=== PATIENT | female | born 1965 | race Caucasian/White ===

== ENCOUNTER 2019-03-03 07:48 | Day surgery (SDC) | payer OTHER ==
[~2019-03-03] VITALS: Ht 170.2 cm; Wt 94.5 kg
[~2019-03-03 07:48] MED LIST: LR 1,000 ML IV ONE; MULTCHW12 PO
[2019-03-03] MEDS ORDERED: dexameTHASONE 4 MG/ML 1ML VIAL (J1100) As Ordered ONE (08:04)
[2019-03-03] MEDS ORDERED: KETOROLAC 60 MG/2 ML VIAL (J1885) As Ordered ONE (08:04)
[2019-03-03] MEDS ORDERED: ONDANSETRON 4MG/2ML VIAL (J2405) As Ordered ONE (08:04)
[2019-03-03] MEDS ORDERED: fentaNYL 100 MCG/2 ML INJECTION (J3010) As Ordered ONE (08:04)
[2019-03-03] MEDS ORDERED: PROPOFOL 200 MG/20 ML VIAL As Ordered ONE (08:04)
[2019-03-03] MEDS ORDERED: LIDOCAINE 2% INJ 100 MG/5 ML SDV (FOR ANES.) As Ordered ONE (08:04)
[2019-03-03] MEDS ORDERED: MIDAZOLAM INJ 2 MG/2 ML VIAL (J2250) As Ordered ONE (08:05)
[2019-03-03 08:28] LABS: HEMATOCRIT 44.9 % (36.0-47.0); HEMOGLOBIN 13.9 g/dl (12.0-15.5); MEAN CORPUSCULAR VOLUME 87.2 fl (80.0-96.0); PLATELET COUNT, AUTOMATED 192 10^3/uL (150-450); RED BLOOD COUNT 5.15 10^6/uL (4.00-5.40); WHITE BLOOD COUNT 6.1 10^3/uL (4.0-10.0)
[2019-03-03 08:38] LABS: HCG, SERUM QUALITATIVE NEGATIVE (NEGATIVE)
[2019-03-03] MEDS ORDERED: MEPERIDINE INJ 25 MG/ML VIAL (J2175) IV PRN (11:00)
[2019-03-03] MEDS ORDERED: METOCLOPRAMIDE INJ 10MG/2ML VIAL (J2765) IV PRN (11:00)
[2019-03-03] MEDS ORDERED: ONDANSETRON 4MG/2ML VIAL (J2405) IV PRN (11:00)
[2019-03-03] MEDS ORDERED: oxyCODONE 5MG TAB PO PRN (11:00)
[2019-03-03] MEDS ORDERED: LR 1,000 ML IV SCH (11:00)
[2019-03-03] MEDS: fentaNYL 100 MCG/2 ML INJECTION (J3010) IV PRN ×2 (11:17→11:23)
[2019-03-03] MEDS ORDERED: PERCOCET 5MG/325MG TAB PO PRN (12:00)
[2019-03-03 12:40] VITALS: BP 140/76
[2019-03-03] MEDS ORDERED: KETOROLAC 30 MG/ML VIAL (J1885) IV PRN (17:00)
--- NOTE | 2019-03-07 11:28 | RO ---
DATE OF PROCEDURE: 03/03/2019 PREPROCEDURE DIAGNOSIS: Abnormal uterine bleeding. POSTPROCEDURE DIAGNOSIS: Abnormal uterine bleeding, endometrial cavity mass. PROCEDURE: Diagnostic hysteroscopy. Dilation and curettage. SURGEON: Dr. Vaibhav Newsome. SUPERVISOR QUILTING: None. ANESTHESIA: General. FLUIDS: 600 mL of lactated Ringers. URINE OUTPUT: 60 mL via straight catheter. Estimated blood loss: 10 mL. ANTIBIOTICS: None indicated. COMPLICATIONS: None. DESCRIPTION OF PROCEDURE: The risks, benefits, indications and alternatives of the procedure were reviewed with the patient and informed consent was obtained. The patient was taken to the operating room where general anesthesia was obtained without difficulty. The patient was then placed in the lithotomy position using Marvin stirrups. The patient was then prepped and draped in the usual sterile fashion and the bladder was drained using and in-and-out catheter. A sterile speculum was placed in the patient's vagina. The cervix was visualized. A single toothed tenaculum was used to grasp the anterior lip of the cervix. A uterine sound was then gently placed into the uterus which sounded to approximately 9 cm in length. The cervix was then gently, serially dilated to a size 12 [place] with a Mateo dilator. The hysteroscope was first primed. The hysteroscope was then advanced through the endocervical canal under direct visualization. After distention of the uterus with warm saline, a systematic examination of the uterine cavity was performed. There was a large intracavitary mass on the anterior, superior surface of the endometrial cavity. This mass was large enough that the tubal ostia could not be seen bilaterally. No other lesions were identified. There was blood noted in the endometrial cavity. The hysteroscope was then removed under direct visualization. A sharp curettage was then performed and a large amount of tissue was obtained including the mass as seen on hysteroscopy. The tissue obtained was sent to pathology for review. The single tooth tenaculum was then removed from the anterior lip of the cervix. The tenaculum sites were noted to be hemostatic. All instruments were the removed from the patient's vagina. The patient tolerated the procedure well. At the completion of the case, sponge, instrument and needle counts were correct times two. The patient was taken to the postanesthesia care unit (PACU) in stable condition. BUD
== END 2019-03-03 12:48 | disposition home or self-care (01) ==
LOC: M SDC 07:48
PROVIDERS: ATTEND Obstetrics & Gynecology
DX: C54.1 Malignant neoplasm of endometrium (principal); Z90.5 Acquired absence of kidney
CPT/HCPCS: 36415; 58558; 84703; 85027; 88305; J1100; J1885; J2250; J2405; J3010

== ENCOUNTER → 2019-05-13 | Outpatient (CLI) | payer OTHER ==
[~2019-05-13] MED LIST changes: +LIDOCAINE 1% MDV 20ML VIAL As Ordered ONE; -LR 1,000 ML IV ONE; +MIDAZOLAM INJ 2 MG/2 ML VIAL (J2250) As Ordered ONE; +MULTTAB24 PO; +ceFAZolin 1GM INJ (J0690 PER 500MG) As Ordered ONE; +diphenhydrAMINE INJ 50MG/ML VIAL (J1200) As Ordered ONE; +fentaNYL 100 MCG/2 ML INJECTION (J3010) As Ordered ONE
--- NOTE | 2019-05-13 11:39 | IRHP ---
[facility] IR Pre-Procedure H & P General Date of Service: May 13, 2019 Procedure: Same Day Surgery Interval History and Physical I have seen the patient and reviewed last H & P performed within 30 days. There is no significant interval change. History of Present Illness Chief Complaint The patient is a 53-year-old female admitted with a reason for visit of Endometrial Ca. PRE-PROCEDURE DIAGNOSIS:endometrial ca HEART: normal rate. LUNGS: normal breathing at rest. Allergies Coded Allergies: No Known Allergies (Unverified , 03/03/19) Home Medications Scheduled Mv,Calcium,Min/Iron/Folic/Vitk (Multi For Her Tablet), 1 TAB PO DAILY, (Reported) Discontinued Medications Folic Acid/Multivit-Min/Lutein (Multi-Vitamin Gummies), 2 CHW PO DAILY, (Reported) Discontinued Reason: Pt states not taking VS, I&O, 24H, Fishbone Vital Signs/I&O Vital Signs Date Time Temp Pulse Resp B/P (MAP) Pulse Ox O2 Delivery O2 Flow Rate FiO2 05/13/19 09:49 98.9 72 16 97 Room Air HARIKA JOHNSON MD May 13, 2019 11:39
--- NOTE | 2019-05-13 12:27 | POST-OPPD ---
Postoperative Procedure Note Date Of Procedure: May 13, 2019 Time Of Procedure: 12:26 PREOPERATIVE DIAGNOSIS: endometrial cancer POSTOPERATIVE DIAGNOSIS: same FINDINGS: patent right IJ PROCEDURE: port SURGEON: prema ANESTHESIA: mod sed ESTIMATED BLOOD LOSS: < 5 ml COMPLICATIONS: none POSTOPERATIVE CONDITION: stable HARIKA JOHNSON MD May 13, 2019 12:27
--- NOTE | 2019-05-13 13:11 | REP ---
IR Ultrasound and fluoroscopy-guided port placement. IR Ultrasound of the neck. IR Moderate sedation. Clinical information: Endometrial cancer. Physician: Dr. Mix. Procedure: The patient was advised of the benefits, risks, and alternatives of the procedure and informed consent was obtained. A time-out was performed with verification of the patient's name, MRN, site of procedure and type of p on the angiographic table. The site was prepped and draped in the usual sterile fashion. Moderate sedation was performed by the physician including the presence of an independent trained observer who assisted and monitored the patient's level of consciousness and physiologic status. Following the administration of fentanyl and Versed , the physician spent 45 minutes of continuous face to face time with the patient. Ultrasound of the neck reveals a patent and compressible right internal jugular vein. A director of procurement radiograph reveals no gross abnormality. The neck and anterior chest wall were anesthetized with lidocaine. The right internal jugular vein was accessed using a microintroducer needle under ultrasound guidance, via a lateral approach. An 018 wire was advanced into the superior vena cava, the needle was removed and a microsheath was placed. An Amplatz wire was then passed into the inferior vena cava. An incision at the internal jugular vein access site and anterior chest wall were made using a scalpel. An incision was made at the anterior chest wall. A small pocket was created using a combination of blunt and sharp dissection. A tunneling device was then used to pass the catheter from the pocket to the neck puncture site. An 8-[place] Angiodynamics Smart power port was then positioned in the pocket. The catheter was then measured and cut. The introducer sheath was exchanged for a peel-away sheath. The catheter was passed through the peel-away sheath into the internal jugular vein and the peel-away sheath was removed. The port tip was positioned at the cavoatrial junction. The port was then accessed with a Liu needle. The port flushes and aspirates well. The puncture site in the neck was closed. The chest wall incision was then closed with 2-0 Vicryl and 4-0 Monocryl. Glue and Steri-Strips were applied. A sterile dressing was then applied. The patient tolerated the procedure well and was returned to the PRU in stable condition. Estimated blood loss: <5 ml. Complications: None. Conclusion: 1. Successful placement of an 8-[place] Angio dynamics Smart power port via the right internal jugular vein. The port is ready for immediate use. 2. Patient to follow up in IR clinic in 2 weeks. Thank you for this referral. Electronically Signed by May Mix MD 05/13/2019 01:10 P
[2019-05-13 14:20] VITALS: BP 108/60
== END ==
LOC: M IRPRO 09:22
PROVIDERS: ATTEND Radiology Diagnostic Radiology
DX: C54.1 Malignant neoplasm of endometrium (principal)
CPT/HCPCS: 36561; 99152; 99153; C1769; C1788; C1894; J0690; J1200; J1642; J1644; J2250; J3010

== ENCOUNTER → 2019-05-31 | Outpatient (POV) | payer OTHER ==
[~2019-05-31] VITALS: Ht 170.2 cm; Wt 88.6 kg
[~2019-05-31] MED LIST changes: -LIDOCAINE 1% MDV 20ML VIAL As Ordered ONE; -MIDAZOLAM INJ 2 MG/2 ML VIAL (J2250) As Ordered ONE; -ceFAZolin 1GM INJ (J0690 PER 500MG) As Ordered ONE; -diphenhydrAMINE INJ 50MG/ML VIAL (J1200) As Ordered ONE; -fentaNYL 100 MCG/2 ML INJECTION (J3010) As Ordered ONE
[2019-05-31 09:15] VITALS: BP 153/96
--- NOTE | 2019-06-03 12:20 | IRPN ---
[facility] IR Progress Note IR Progress Note DATE: May 31, 2019 FOLLOW-UP: Status post port placement. Port functioning well. No fevers or chills. No pain at site. ON EXAMINATION: Port site appears to be healing well. No redness, tenderness, fluctuance or discharge. IMPRESSION: Doing well status post port placement. No further follow-up scheduled unless initiated by patient and or referring provider. Thank you for this referral Allergies Coded Allergies: No Known Allergies (Unverified , 03/03/19) VS,Fishbone, I+O VS, Fishbone, I+O Vital Signs Date Time Temp Pulse Resp B/P (MAP) Pulse Ox O2 Delivery O2 Flow Rate FiO2 05/31/19 09:15 97.1 86 18 153/96 (115) 98 Room Air HARIKA JOHNSON MD Jun 03, 2019 12:20
== END ==
LOC: M IRPOV 09:07
PROVIDERS: ATTEND Radiology Diagnostic Radiology
DX: Z45.2 Encounter for adjustment and management of vascular access device (principal)

== ENCOUNTER → 2019-09-05 | Outpatient (CLI) | payer OTHER ==
[~2019-09-05] MED LIST changes: +ACETAMINOPHEN 325 MG TAB As Ordered ONE; +ACETAMINOPHEN TAB 650MG DOSE (2X325MG) PO ONE; +B-10TAB2 PO; +LIDOCAINE 1% MDV 20ML VIAL As Ordered ONE; +MIDAZOLAM INJ 2MG/2ML VIAL (J2250 PER 1MG) As Ordered ONE; +ZOFR4TAB16 PO; +ceFAZolin 2 GM/D5W 50 ML IV BAG (J0690 PER 500MG) As Ordered ONE; +diphenhydrAMINE 50MG/ML VIAL (J1200) As Ordered ONE; +fentaNYL 100 MCG/2 ML INJECTION (J3010) As Ordered ONE
[2019-09-05 16:45] VITALS: BP 167/84
--- NOTE | 2019-09-05 19:39 | REP ---
PICC line insertion under ultrasound guidance. The procedure was performed by ANKUSH Pandey, under the direct supervision of Dr. Clayton. The risks and benefits of the procedure were explained to the patient and informed consent was obtained both verbally and written. Directly prior to the start of the procedure, a formal timeout was completed in the procedure room. The left medial brachial vein was localized using ultrasound guidance. The skin was prepped and draped in the sterile fashion. 2 ml 1% lidocaine 10 mg/ml was used as a local anesthetic. Using ultrasound guidance the left medial brachial vein was cannulated and a 0.018 guidewire was inserted and advanced to the SVC using fluoroscopic guidance. The needle was removed and a 4.5 [place] dilator and peel-away sheath was inserted over the guidewire. A 4.5 [place] single lumen catheter was cut to the length of 38 cm. The dilator was removed and the catheter was inserted over the guide wire with the tip ending in the SVC. The peel-away sheath was removed and the catheter was flushed with heparinized saline as per hospital protocol. The catheter was affixed to the skin and a sterile dressing was applied. The patient tolerated the procedure well and there were no immediate complications. 0.3 minutes of fluoroscopy time was utilized for this procedure. Some fluoroscopic images are performed with last image hold technology. These images require no additional radiation. Reviewed by ANKUSH Faust 09/05/2019 05:27 P Electronically Signed by Isaías Clayton MD 09/05/2019 07:30 P
--- NOTE | 2019-09-08 07:40 | POST-OPPD ---
Postoperative Procedure Note Date Of Procedure: Sep 05, 2019 Time Of Procedure: 07:39 PREOPERATIVE DIAGNOSIS:endometrial cancer POSTOPERATIVE DIAGNOSIS: same FINDINGS: right sided port PROCEDURE: port removed. No signs of infection SURGEON: Dominguez ANESTHESIA: mod sed ESTIMATED BLOOD LOSS: < 5 ml COMPLICATIONS: none POSTOPERATIVE CONDITION: stable HARIKA JOHNSON MD Sep 08, 2019 07:40
--- NOTE | 2019-09-08 12:24 | REP ---
IR port removal. IR moderate sedation. Clinical information: Endometrial cancer. Physician: Dr. Mix. Procedure: The patient was advised of the benefits, risks and alternatives of the procedure and informed consent was obtained. The time-out was performed with verification of the patient's name, MRN, site of procedure and type of procedure to be performed. The patient was positioned in the supine position on the angiographic table. The site was prepped and draped in the usual sterile fashion. Moderate sedation was performed by the physician including the presence of an independent trained observer who assisted and monitored the patient's level of consciousness and physiologic status. Following the administration of fentanyl and Versed, the physician spent 45 minutes of continuous face to face time with the patient. A civil draftsman radiograph reveals a left-sided midline. The soft tissues overlying the port pocket were anesthetized with lidocaine. An incision was made over the port using an 15 blade scalpel in the location of the prior incision. The catheter was then freed with blunt dissection and extracted. Pressure was applied to obtain hemostasis. The port was then freed with blunt dissection and subsequently removed. There are no signs of infection. After hemostasis was achieved, the incision was closed with interrupted deep 2-0 Vicryl sutures and subcuticular Monocryl sutures. The site was cleansed and covered with a sterile dressing. A follow-up radiograph demonstrates complete removal of the port. The patient tolerated the procedure well and was returned to PRU in stable condition. EBL: < 5 ml. Complications: None. Conclusion: 1. Successful explant of a left sided port. 2. No signs of infection. Thank you this referral. Electronically Signed by May Mix MD 09/08/2019 12:23 P
== END ==
LOC: M IRPRO 12:33
PROVIDERS: ATTEND Obstetrics & Gynecology Gynecologic Oncology
DX: C54.1 Malignant neoplasm of endometrium (principal)
CPT/HCPCS: 36573; 99152; 99153; C1751; J0690; J1200; J1642; J1644; J2250; J3010

== ENCOUNTER → 2019-10-27 | Outpatient (CLI) | payer OTHER ==
[~2019-10-27] MED LIST changes: -ACETAMINOPHEN 325 MG TAB As Ordered ONE; -ACETAMINOPHEN TAB 650MG DOSE (2X325MG) PO ONE; -LIDOCAINE 1% MDV 20ML VIAL As Ordered ONE; -MIDAZOLAM INJ 2MG/2ML VIAL (J2250 PER 1MG) As Ordered ONE; -ceFAZolin 2 GM/D5W 50 ML IV BAG (J0690 PER 500MG) As Ordered ONE; -diphenhydrAMINE 50MG/ML VIAL (J1200) As Ordered ONE; -fentaNYL 100 MCG/2 ML INJECTION (J3010) As Ordered ONE
== END ==
LOC: M ONCR 11:12
PROVIDERS: ATTEND General Practice
DX: C54.1 Malignant neoplasm of endometrium (principal)

== ENCOUNTER 2019-11-08 10:35 | Outpatient (RCR) | payer OTHER | END 2019-11-14 | LOC: M ONCR 10:35 | PROVIDERS: ATTEND General Practice | DX: C54.1 Malignant neoplasm of endometrium (principal) ==

== ENCOUNTER → 2019-12-14 | Outpatient (RCR) | payer OTHER | LOC: M ONCR 11-15 15:27 | PROVIDERS: ATTEND General Practice | DX: C54.1 Malignant neoplasm of endometrium (principal); R19.7 Diarrhea, unspecified ==

== ENCOUNTER 2019-12-29 08:12 | Outpatient (RCR) | payer OTHER | END 2020-01-14 | LOC: M ONCR 08:12 | PROVIDERS: ATTEND General Practice | DX: C54.1 Malignant neoplasm of endometrium (principal) ==

== ENCOUNTER → 2020-02-29 | Outpatient (CLI) | payer OTHER ==
--- NOTE | 2020-02-29 09:48 | RADONC ---
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 She had a hysterectomy and pelvic LND on 03/29/19 followed by 6 cycles of adjuvant carbo/taxol. She then underwent adjuvant pelvic EBRT 45 Gy in 25 fractions with VMAT completed 12/29/19 (she declined referral for vaginal cuff brachytherapy). Diagnosis/Treatment History Oncologic History As above Interval History Doing well today. No pelvic pain or discharge from below. Her kidney function (has solitary kidney) is doing well per her urologist. Her diarrhea present from EBRT has abated and is now only occasional. No blood in urine or stool. Her appetite is good and her energy and weight are stable. Current Therapy Surveillance Stage FIGO 1B grade 3 endometrioid adenocarcinoma outer 1/3 myometrial involvement Social History: Non-smoker Non-drinker Allergies / Meds Allergies: Coded Allergies: No Known Allergies (Unverified , 03/03/19) Home Meds Reported Medications Ondansetron HCl (Zofran) 4 Mg Tablet, 1 TAB PO Q6-8HP PRN for nausea/vomiting for 2 Days, #5 TAB 09/02/19 Vit B Complex 100 Combo No.2 (B-100 Complex) 100 Mg Tablet.er, 1 TAB PO DAILY for 30 Days, #30 TAB 09/02/19 Mv,Calcium,Min/Iron/Folic/Vitk (Multi For Her Tablet) 1 Each Tablet, 1 TAB PO DAILY, TAB 05/13/19 Review of Systems Review of Systems Constitutional: Denies: Chills, Fever, Weight Loss Eyes: Denies: Pain HEENT: Denies: Head Aches Skin: Denies: Rash Pulmonary: Denies: Dyspnea, Cough Cardiovascular: Denies: Chest Pain, Palpitations Gastrointestinal: Reports: Diarrhea (occasional); Denies: Nausea, Vomiting, Abdominal Pain, Constipation, Hematochezia Genitourinary: Denies: Dysuria, Frequency, Hematuria Hematologic: Denies: Bruising Endocrine: Denies: Polydipsia Musculoskeletal: Denies: Neck pain, Back pain Neurological: Denies: Weakness, Numbness Psych: Reports: Mood Normal Physical Examination Vital Signs Ht 67" Wt 203 T 97.3 P 70 RR 16 BP 122/83 O2 100% Pain 0 Fatigue 1 General Exam: Positive: Alert, Cooperative; Negative: No Acute Distress Eye Exam: Positive: PERRLA, EOMI ENT EXAM: Positive: Atraumatic, Pharynx Normal Neck Exam: Positive: Supple; Negative: Lymphadenopathy Chest Exam: Positive: Clear to auscultation, Normal air movement Heart Exam: Positive: Rate Normal, Regular Rhythm Abdomen Exam: Positive: Normal bowel sounds, Soft; Negative: Tenderness Female Exam: Positive: Nl Ext Genitalia; Negative: Lesions (Vaginal cuff apex with pale muscosa and mild banding, no mucosal lesions visible. No palpable lesions on digital exam), Discharge, Tenderness Extremity Exam: Negative: Edema Skin Exam: Positive: Nl turgor and temperature Neuro Exam: Positive: Normal Gait, Normal Speech, Cranial Nerves 3-12 NL Psych Exam: Positive: Mental status NL Diagnostic and Laboratory Diagnostic Review Radiologic images, relevant labs and pathology reports were personally reviewed and discussed with Ms. Singletary. Assessment and Plan Impression Assessment Ms. 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 She had a hysterectomy and pelvic LND on 03/29/19 followed by 6 cycles of adjuvant carbo/taxol. She then underwent adjuvant pelvic EBRT 45 Gy in 25 fractions with VMAT completed 12/29/19 (she declined referral for vaginal cuff brachytherapy). She is doing well. Her CTCAE grade 2 diarrhea from EBRT has mostly resolved, she is happy about this. Her exam today shows mild post RT changes in the vaginal cuff apex, no evidence of recurrent disease. I discussed with her that split follow-up with me and her gynecologic oncologist q3m for the first 2 years would be best. To that end she will call and get an appointment in [place] with qa consultant onc in the next 2-3 months. I will then see her in 6 months time from now. Performance Status ECOG 0 Plan Follow up in 6 months Patient to see qa consultant onc in the next 2-3 months Ms. Singletary was encouraged to call with questions or concerns in the interim period. JOAO CARTY MD Feb 29, 2020 09:48
== END ==
LOC: M ONCR 08:24
PROVIDERS: ATTEND Radiology Radiation Oncology
DX: C54.1 Malignant neoplasm of endometrium (principal); Z92.3 Personal history of irradiation

== ENCOUNTER → 2024-06-27 | Outpatient (CLI) | payer OTHER | LOC: M WHC 09:59 | PROVIDERS: ATTEND Nurse Practitioner Family | DX: N18.2 Chronic kidney disease, stage 2 (mild) (principal); Z90.5 Acquired absence of kidney ==